=== PATIENT | male | born 1965 | race Caucasian/White ===

== ENCOUNTER 2019-01-18 20:26 | Emergency (ER) | payer BC ==
[~2019-01-18] VITALS: Ht 172.7 cm; Wt 109.1 kg
[~2019-01-18 20:26] MED LIST: APIX5TAB PO; CYCL5TAB PO; ESCI20TA38 PO; GEMF600T8 PO; IBUP-1542 PO; ICOS1CAP PO; METF500T24 PO; OMEP40CA6 PO; QUET200T27 PO; TAMS-14 PO
[2019-01-18 20:43] VITALS: Ht 172.7 cm; Wt 109.1 kg
--- NOTE | 2019-01-18 22:14 | ERD ---
ER Documentation Chief Complaint Chief Complaint fall today, reinjured L knee. chronic dislocation to knee. no KO HPI The patient is a 53-year-old male, presenting to the ER because of mild left knee pain after he fell off his wheelchair about 3 hours ago. He ran over a bump and lost balance and fell. He denies any other injury. He denies headache, neck pain, chest pain, abdominal pain, vomiting. He is wheelchair- bound because he has chronic dislocation of the left knee. He is homeless Past medical history: History of left femur and left leg osteomyelitis status post surgery in April 2018, chronic left knee dislocation, diabetes mellitus, depression Past surgical history: Left femur and left leg surgery due to trauma, left eye prosthetic ROS All systems reviewed and are negative except as per history of present illness. Medications Home Meds Active Scripts Ibuprofen* (Motrin*) 600 Mg Tab, 600 MG PO Q6H PRN for PAIN AND OR ELEVATED TEMP, #20 TAB Prov:RUSSELL LOBO MD 01/19/19 Allergies Allergies: Coded Allergies: No Known Allergy (Unverified , 01/18/19) PMhx/Soc Medical and Surgical Hx: pt denies Medical Hx History of Surgery: Yes (L KNEE SURGERY ,L EYE PROSTATIC) Anesthesia Reaction: No Hx Neurological Disorder: No Hx Respiratory Disorders: No Hx Cardiac Disorders: No Hx Psychiatric Problems: No Hx Miscellaneous Medical Probl: No Hx Alcohol Use: No Hx Substance Use: No Hx Tobacco Use: No Smoking Status: Never smoker Physical Exam Vitals Vital Signs Date Temp Pulse Resp B/P (MAP) Pulse Ox O2 O2 Flow FiO2 Time Delivery Rate 01/18/19 93 16 126/95 98 Room Air 23:07 (105) 01/18/19 99.1 107 18 127/86 96 20:43 (100) Physical Exam Const: No acute distress. Head: Atraumatic. Eyes: Normal Conjunctiva. ENT: Normal External Ears, Nose and Mouth. Neck: Full range of motion. No meningismus. Resp: Clear to auscultation bilaterally. Cardio: Regular rate and rhythm. Abd: Soft, non distended, normal bowel sounds, non tender. Skin: No petechiae or rashes. Back: No midline or flank tenderness. Ext: No cyanosis, or edema. Chronic left knee edema with limited range of motion, no calf tenderness/ point tenderness Neur: Awake and alert. No focal deficit Psych: Normal Mood and Affect. Results 24 hrs Laboratory Tests Test 01/18/19 23:01 Bedside Glucose 195 mg/dL Procedures/[place] [address] Radiology Main Line: [phone] DIAGNOSTIC IMAGING REPORT Patient: KARIN DUFFY : 1965 Age: 53 Sex: M MR #: [id number] DOS: 01/18/19 2252 Ordering MD: RUSSELL LOBO MD Location: E/R Room/Bed: PROCEDURE: Left knee. CLINICAL INDICATION: Pain. TECHNIQUE: Three views including AP, lateral and oblique views of the left knee were obtained. The images reviewed on a PACS workstation. COMPARISON: None. FINDINGS: There is dorsal dislocation of the tibia. There are small displaced cortical fractures. Bone mineralization is within normal limits. There are postsurgical changes within the tibial shaft. IMPRESSION: Dorsal dislocation of the tibia with small displaced cortical fractures. .Shivam Plascencia MD, MD Date Time Electronically viewed and signed by .Shivam Plascencia MD, MD on 01/19/2019 00:44 .T/ CC: RUSSELL LOBO MD [id number] MEDICAL MAKING DECISION: The patient is a 53-year-old male, presenting with acute left knee pain due to fall, chronic left knee dislocation. The differential diagnoses considered include but are not limited to fracture, contusion, sprain, internal derangement Departure Diagnosis: Primary Impression: Knee pain, left Condition: Good Comments He was discharged with Motrin The patient's blood pressure was elevated (>120/80) but appears stable without evidence of hypertension emergency or urgency. The patient was counseled about the risks of hypertension and urged to pursue outpatient monitoring and therapy within a week with their primary care physician. I have provided a medical screening exam and evaluation. Referral to outpatient behavioral health for follow up is [not indicated] The patient is clinically stable for discharge. I have communicated after-visit instructions and plan to the patient. Because patient has been identified as without residence, the hospital policy and process for discharge requirements have been initiated by appropriate hospital staff. However when the nurse came to discharge the patient, he complains that he has nowhere to go and complains that he is suicidal without a plan He is currently awaiting for telepsychiatrist evaluation prior to discharge I discussed the findings with the patient. I advised the patient to follow-up at the [facility] in about 2-3 days, sooner if needed and return if any concern. Disclaimer: Inadvertent spelling and grammatical errors are likely due to EHR/dictation software use and do not reflect on the overall quality of patient care. Also, please note that the electronic time recorded on this note does not necessarily reflect the actual time of the patient encounter. RUSSELL LOBO MD January 18, 2019 22:14
--- NOTE | 2019-01-19 04:32 | PSY ---
Date/Time of Note Date/Time of Note DATE: 01/19/19 TIME: 04:13 Psychiatric Subjective Eval Consent Pt consented to telemedicine: Yes Subjective Evaluation Patient location: emergency Chief Complaint: fall today, reinjured L knee. known dislocation to knee. no KO Reason for consult: suicidal ideation History of present illness patient is a 53 yo male homeless with a PPH of "psychosis" who came to the ER following a fall but then as he was being discharged from the ER he said that he was going to kill himself if he is being discharged. He tells me that he has been feeling depressed , hopeless and helpless for months due to " i dont like this life " , he is feeling suicidal with plan and intent to run into traffic , he states that last year he tried to run into traffic to kill himself but was not admitted to a hospital. he states that he has been hearing voices telling him to hurt himself. He has been feeling paranoid for months, he denies any drug or alcohol abuse, he states that he takes seroquel 600 mg po qhs , he has been having problem sleeping . Medical history Problems Medical Problems: (1) Knee pain, left Status: Acute Allergies: Coded Allergies: No Known Allergy (Unverified , 01/18/19) Substance Abuse Substance use: No known substance abuse Substance abuse history: No Prior substance abuse treatmen: No Social History Marital status: single Psychiatric Objective Eval Review of Systems: Review of Systems: Not Applicable Physical Examination: Physical Examination: Applicable Sleep: Insomnia Appetite: Increased Energy: Decreased Interest: Decreased Mental Status Examination: Appearance: Disheveled Eye Contact: Poor Psychomotor Activity: Slow Behavior: Cooperative Speech: Soft AFFECT: Depressed Mood: Depressed Though Process: Linear Thought Content: Hallucinations Suicidal: Yes Homicidal: No On 72 hour hold: No Orientation: x2 Cognition: Drowsy Insight: Impared Judgement: Impared Attention Span: Distractible Laboratory Results Laboratory Tests Test 01/18/19 23:01 Bedside Glucose 195 mg/dL Assessment and Plan Assessment/Diagnosis Diagnosis major depressive disorder recurrent with psychotic features Recommendation/Plan Medication Management wellbutrin xl 150 mg po qam for depression risperdal 2 mg po qhs for delusion and hallucination Discharge Disposition: Psychiatric inpatient Legal Status: Place involuntary hold THADDEUS ARORYO MD January 19, 2019 04:31
--- NOTE | 2019-01-19 13:27 | EN ---
Date/Time of Note Date/Time of Note DATE: 01/19/19 TIME: 13:26 ER Progress Note Observation Note: Time: 4 hours Family Hx: No Hypertension Evaluation: This patient has remained calm with no signs of aggression or escalation of behavior. P MRT did evaluate the patient and the patient was placed on the 50 one 50 hold. We will continue to attempt placement for this patient CHIQUIS MINAYA DO January 19, 2019 13:27
[2019-01-20] MEDS ORDERED: QUETIAPINE 100 MG TAB PO ONE ×2 (11:30→23:30)
[2019-01-21] MEDS ORDERED: DIPHENHYDRAMINE 50 MG INJ ONE (01:52)
[2019-01-21] MEDS ORDERED: LORAZEPAM 2 MG INJ ONE (01:53)
[2019-01-21] MEDS ORDERED: HALOPERIDOL 5 MG INJ ONE (01:53)
[2019-01-21] MEDS ORDERED: DIPHENHYDRAMINE 50 MG INJ IM ONE (02:00)
[2019-01-21] MEDS ORDERED: LORAZEPAM 2 MG INJ IM ONE (02:00)
[2019-01-21] MEDS ORDERED: HALOPERIDOL 5 MG INJ IM ONE (02:00)
--- NOTE | 2019-01-21 16:06 | PSY ---
Date/Time of Note Date/Time of Note DATE: 01/21/19 TIME: 19:03 Psychiatric Subjective Eval Consent Pt consented to telemedicine: Yes Subjective Evaluation Patient location: emergency Chief Complaint: fall today, reinjured L knee. known dislocation to knee. no KO Reason for consult: suicidal ideation History of present illness HPI: 53 yo male with ho psychosis, reported two days ago that he wants to kill himself by walking into traffic. SAys he no longer has SI. Reported CAh to kill self 2 days ago, reports that he no longer has them. Reports he wants to leave because "they are not giving me my medications." Past Psych Hx: + ho psych admits and suicide attempts PMhx: DM nkda Meds: not taking MSE: casually groomed, mostly cooperative, calm decreased prosody of speech, depressed restricted affect, organized, minimizing, denies delusions or avh or si/hi Imp: 53 yo male had si with plan Though pt denies SI, that he appears depressed, reported Si recently has ho suicide attempts sand also had CAH to kill self, suggests that there is not enough evidence to suggest that the pt is not an acute risk to self; recommend parallel hx from family to obtain more information about recent mental status and this episode; this will help determine disposition Utox 5150 for further eval For moderate agitation Zyprexa 5mg po prn For severe agitation chlorpromazine 25mg im prn Medical history Problems Medical Problems: (1) Knee pain, left Status: Acute Allergies: Coded Allergies: No Known Allergy (Unverified , 01/20/19) Social History Marital status: single Assessment and Plan Recommendation/Plan Multiple antipsychotics: No Discharge Disposition: Other Legal Status: Place involuntary hold SARI VEGA January 21, 2019 16:06
[2019-01-21] MEDS ORDERED: RISPERIDONE 2 MG TAB PO ONE (23:00)
[2019-01-21] MEDS ORDERED: QUETIAPINE 100 MG TAB PO ONE (23:00)
[2019-01-21] MEDS ORDERED: LORAZEPAM 1 MG TAB PO SCH (23:45)
[2019-01-21] MEDS ORDERED: LORAZEPAM 1 MG TAB PO STA (23:53)
[2019-01-22] MEDS: BUPROPION (XL) 150 MG TAB PO SCH (09:00)
--- NOTE | 2019-01-22 11:56 | PSY ---
Date/Time of Note Date/Time of Note DATE: 01/22/19 TIME: 11:52 Psychiatric Subjective Eval Consent Pt consented to telemedicine: Yes Subjective Evaluation Patient location: emergency Chief Complaint: fall today, reinjured L knee. known dislocation to knee. no KO Reason for consult: suicidal ideation History of present illness 53 yo homeless male presented to ED with active SI after he was released form a SNF; he says he can not take care of himself . He says he is not suicidal "at the moment" and wants to go to a SNF again. He says he tried to kil himself by walking into traffic 2 days ago; he says he is not receiveing his meds while in ED and has his meds in his suitecase but meds were not given to him here in ED. + command AH. No HI. Depressed, irritable. Past psychiatric history hx prior inpt and SA Hospitalization: Suicidal Attempt(s) Family History denies Medical history Problems Medical Problems: (1) Knee pain, left Status: Acute Allergies: Coded Allergies: No Known Allergy (Unverified , 01/21/19) Substance Abuse Substance use: No known substance abuse Social History Marital status: single DPA/Conservatorship: No Occupation/Snf: disabed Psychiatric Objective Eval Review of Systems: Review of Systems: Not Applicable Physical Examination: Physical Examination: Not Applicable Mental Status Examination: Appearance: Disheveled Eye Contact: Good Psychomotor Activity: Normal Behavior: Cooperative Speech: Clear AFFECT: Constricted Mood: Depressed Though Process: Linear Thought Content: Hallucinations Suicidal: Yes Homicidal: No On 72 hour hold: Yes Orientation: x4 Cognition: Alert Insight: Impared Judgement: Impared Assessment and Plan Assessment/Diagnosis Diagnosis Major depressive disroder recurrent severe with psychosis. Recommendation/Plan Medication Management Please verify pt's meds and continue while in ED . Multiple antipsychotics: Yes Discharge Disposition: Psychiatric inpatient Legal Status: Continue involuntary hold DUNG ISRAEL MD January 22, 2019 11:56
[2019-01-22] MEDS ORDERED: QUETIAPINE 100 MG TAB PO ONE ×2 (12:00→22:00)
[2019-01-22] MEDS ORDERED: LORAZEPAM 1 MG TAB PO ONE (12:30)
[2019-01-22] MEDS: RISPERIDONE 2 MG TAB PO SCH (20:21)
[2019-01-22] MEDS ORDERED: PANTOPRAZOLE (EC) 40 MG TAB PO ONE (20:30)
[2019-01-23] MEDS: BUPROPION (XL) 150 MG TAB PO SCH (08:42)
[2019-01-23] MEDS ORDERED: QUETIAPINE 100 MG TAB PO ONE (12:00)
[2019-01-23] MEDS ORDERED: LORAZEPAM 1 MG TAB PO ONE (12:00)
[2019-01-23] MEDS ORDERED: NICARDipine HCL 30 MG CAPSULE PO ONE (12:30)
[2019-01-23] MEDS ORDERED: GABAPENTIN 300 MG CAP PO ONE (12:30)
--- NOTE | 2019-01-23 16:09 | CONS ---
Date/Time of Note Date/Time of Note DATE: 01/23/19 TIME: 16:04 Consult Date/Type/Reason Admit Date Type of Consult Psych Subjective Patient is a 53-year old with long history of mental illness who came to the ER following fall. On a [id number] evaluation, patient states he has been evaluated by the psych team 3 times since he came to the ER, he states he was feeling frustrated hopeless and helpless, he however denies suicidal ideation denies auditory hallucination and contracted for safety. Patient notes he has better coping skills, will continue to provide supportive therapy . Objective Patient Appearance: Appropriate dress Voice Loudness: Mildly Soft/Quiet Mood and Affect Description: Anxious Mood or Affect: Cooperative Speech Pattern: Clear Thought Process: Intact Delusion Description: Not Present Assessment/Plan Recommendations Patient currently does not meet criteria for 5150 hold. Continue current meds bupropion XL 150 mg daily and Risperdal 2 mg daily KEKE CERVANTES NP January 23, 2019 16:09
[2019-01-23] MEDS ORDERED: FAMOTIDINE 20 MG TAB PO ONE (17:00)
--- NOTE | 2019-01-23 19:10 | PSY ---
Date/Time of Note Date/Time of Note DATE: 01/23/19 TIME: 20:06 Psychiatric Subjective Eval Consent Pt consented to telemedicine: Yes Subjective Evaluation Patient location: emergency Chief Complaint: fall today, reinjured L knee. known dislocation to knee. no KO Reason for consult: CONTINUE 5150 HOLD History of present illness the patient was in medicine because of his fracture. he was going to be released and he said that he felt suicidal and wanted to go to a [facility]. he is now being admitted back to medicine. the patient denies any thoughts or plans of suicide. there is no evidence of homicidal thoughts or plans. no psychosis, no eveline or aggression. there is no evidence that the patient needs any psychiatric interventions. the patient wants to go to a usp. he is calm and cooperative. Past psychiatric history depression. he has a history of making suicidal comments. Hospitalization: yes Family History denies Medical history Problems Medical Problems: (1) Knee pain, left Status: Acute Allergies: Coded Allergies: No Known Allergy (Unverified , 01/21/19) Substance Abuse Substance use: No known substance abuse Substance abuse history: No Prior substance abuse treatmen: No Social History Marital status: single Level of education: high school DPA/Conservatorship: No Occupation/Skilled Nursing: disabed Psychiatric Objective Eval Mental Status Examination: Appearance: Groomed Eye Contact: Good Psychomotor Activity: Normal Behavior: Cooperative Speech: Clear AFFECT: Appropriate Mood: Appropriate/Full Though Process: Linear Thought Content: Normal Suicidal: No Homicidal: No On 72 hour hold: Yes Orientation: x4 Cognition: Alert Insight: Intact Judgement: Intact Attention Span: Intact Laboratory Results Laboratory Tests Test 01/22/19 20:19 Bedside Glucose 198 mg/dL Assessment and Plan Assessment/Diagnosis Diagnosis depression Recommendation/Plan Medication Management there is currently no evidence that the patient requires inpatient psychiatric hospitalization. he denies suicidal or homicidal thoughts or plans. there is no evidence of psychosis, aggression or eveline. the patient's hold may be discontinued. seroquel may be continued. Multiple antipsychotics: No Discharge Disposition: Community (SNF) Legal Status: Release involuntary hold AYAH BRUMFIELDJCIECH January 23, 2019 19:10
[2019-01-23] MEDS: RISPERIDONE 2 MG TAB PO SCH (20:35)
[2019-01-23] MEDS ORDERED: QUETIAPINE 100 MG TAB PO SCH (21:00)
[2019-01-24] MEDS: BUPROPION (XL) 150 MG TAB PO SCH (09:00)
[2019-01-24] MEDS ORDERED: QUETIAPINE 100 MG TAB PO SCH (09:00)
[2019-01-24 09:05] VITALS: BP 115/60; PULSE 72; RESP 18
== END 2019-01-24 09:26 | disposition home or self-care (01) ==
LOC: E/R 20:26
DX: M25.562 Pain in left knee (principal); E11.9 Type 2 diabetes mellitus without complications
CPT/HCPCS: 73562; 80053; 80307; 81003; 82962; 85025; 87086; J1200; J1630; J2060; Z7610; 96372